=== PATIENT | female | born 1965 | race Caucasian/White ===

== ENCOUNTER 2021-07-18 14:31 | Emergency (ER) | payer OTHER ==
[~2021-07-18] VITALS: Ht 162.6 cm; Wt 111.6 kg
[2021-07-18] MEDS ORDERED: KETOROLAC TROMETHAMINE 30 MG/ML VIAL IM STA (14:44)
[2021-07-18] MEDS ORDERED: HYDROCODONE/APAP 5MG-325MG TAB PO ONE (15:30)
[2021-07-18] MEDS ORDERED: ULTRAM50 MG PO (17:28)
[2021-07-18] MEDS ORDERED: CLONIDINE HCL 0.1 MG TAB PO ONE (17:30)
[2021-07-18] MEDS ORDERED: CLONIDINE HCL 0.1 MG TAB ONE (17:30)
== END 2021-07-18 18:05 | disposition home or self-care (01) ==
LOC: ER 15:49
DX: M25.561 Pain in right knee (principal); S83.91XA Sprain of unspecified site of right knee, initial encounter; M25.461 Effusion, right knee; W18.30XA Fall on same level, unspecified, initial encounter; I10 Essential (primary) hypertension; E11.9 Type 2 diabetes mellitus without complications
CPT/HCPCS: 73562; 99283; J1885

== ENCOUNTER 2021-11-02 12:14 | Emergency (ER) | payer OTHER ==
[~2021-11-02] VITALS: Ht 162.6 cm; Wt 111.6 kg
[~2021-11-02 12:14] MED LIST: ULTRAM50 MG PO
[2021-11-02] MEDS ORDERED: HYDRALAZINE HCL 20 MG/ML VIAL IV ONE (12:22)
[2021-11-02 12:48] LABS: BASOPHILS # (AUTO) 0.1 (0.0-0.1); BASOPHILS % 0.4 % (0.0-1.0); EOSINOPHILS # (AUTO) 0.2 (0.0-0.4); EOSINOPHILS % 1.3 % (0.0-6.0); HEMATOCRIT 42.7 % (34.2-44.1); HEMOGLOBIN 13.7 g/dL (12.0-16.0); LYMPHOCYTES # (AUTO) 2.8 (1.0-3.2); LYMPHOCYTES % 22.4 % (18.0-39.1); MEAN CORPUSCULAR HEMOGLOBIN 30.5 pg (28-32); MEAN CORPUSCULAR HGB CONC 32.1 g/dL (31-35); MEAN CORPUSCULAR VOLUME 95.1 fL (81-99); MONOCYTES # (AUTO) 0.8 (0.2-0.8); MONOCYTES % 6.4 % (4.4-11.3); NEUTROPHILS # (AUTO) 8.5 (2.1-6.9); NEUTROPHILS % 68.9 % (38.7-80.0); PLATELET COUNT 379 x10e3/uL (140-360); RED BLOOD COUNT 4.49 x10e6/uL (3.6-5.1); RED CELL DISTRIBUTION WIDTH 13.2 % (11.7-14.4)
[2021-11-02 13:05] LABS: ALBUMIN 3.1 g/dL (3.5-5.0); ALBUMIN/GLOBULIN RATIO 0.7 (0.8-2.0); ANION GAP 15.3 mmol/L (8-16); CALCIUM 8.5 mg/dL (8.4-10.2); CREATININE, SERUM 1.26 mg/dL (0.57-1.11); POTASSIUM 4.3 mmol/L (3.5-5.1)
[2021-11-02] MEDS ORDERED: INSULIN REGULAR, HUMAN 100 UNIT/1 ML IV ONE (13:15)
[2021-11-02] MEDS ORDERED: SODIUM CHLORIDE 0.9% 1000ML 1,000 ML IV ONE (13:15)
[2021-11-02] MEDS ORDERED: LABETALOL HCL 5 MG/ML 20ML VIAL IV ONE (13:52)
[2021-11-02] MEDS ORDERED: LOSARTAN POTASSIUM 100 MG TAB PO ONE (14:00)
[2021-11-02] MEDS ORDERED: HYDROCHLOROTHIAZIDE 25 MG TAB PO ONE (14:00)
[2021-11-02] MEDS ORDERED: LOSARTAN POTASSIUM 25 MG TAB PO ONE (14:30)
[2021-11-02] MEDS ORDERED: LOSARTAN POTAS100 MG PO (15:07)
[2021-11-02] MEDS ORDERED: HYDROCHLOROTHIA25 MG PO (15:07)
[2021-11-02 15:17] VITALS: BP 162/99
== END 2021-11-02 15:15 | disposition home or self-care (01) ==
LOC: ER 12:17
DX: I10 Essential (primary) hypertension (principal); H11.32 Conjunctival hemorrhage, left eye; E11.65 Type 2 diabetes mellitus with hyperglycemia; I45.10 Unspecified right bundle-branch block
CPT/HCPCS: 36415; 80053; 82948; 84484; 85025; 93005; 99284; J0360; J7030

== ENCOUNTER 2024-06-18 16:01 | Inpatient (IN) | payer OTHER ==
[~2024-06-18] VITALS: Ht 162.6 cm; Wt 118.2 kg
[~2024-06-18 16:01] MED LIST changes: +HYDROCHLOROTHIA25 MG PO; +LOSARTAN POTAS100 MG PO
[2024-06-18 16:10] VITALS: RESP 18; TEMP 98.8
[2024-06-18] MEDS: LABETALOL HCL 5 MG/ML 20ML VIAL IV STA (16:55)
[2024-06-18] MEDS: FUROSEMIDE INJ 10 MG/ML 4 ML VIAL IV ONE (16:55)
[2024-06-18] MEDS: ALBUTEROL/IPRATROPIUM 3 ML NEB NEB ONE (16:56)
[2024-06-18 17:24] VITALS: PULSE 83
[2024-06-18 19:08] LABS: TROPONIN I 4.421 ng/mL (0-0.300)
[2024-06-18 19:15] VITALS: PULSE 82; RESP 18; O2SAT 98
[2024-06-18] MEDS: ASPIRIN 325 MG TAB PO ONE (19:16)
[2024-06-18] MEDS ORDERED: HEPARIN SOD/DEXTROSE 5% 25000 UNIT/250 ML BAG IV SCH ×2 (19:30→21:15)
[2024-06-18] MEDS ORDERED: DEXTROSE 50% SYRINGE 50 ML IV PRN (20:30)
[2024-06-18 20:40] VITALS: BP 191/122; PULSE 83; RESP 18; TEMP 98.8; O2SAT 97
[2024-06-18 21:08] VITALS: BP 192/122; PULSE 88; RESP 20; TEMP 98; O2SAT 99
[2024-06-18] MEDS: HEPARIN 25,000 UNIT/D5W 250ML 250 ML IV SCH (22:21)
[2024-06-18] MEDS ORDERED: JARDIANCE10 MG (22:39)
[2024-06-18] MEDS: CLONIDINE HCL 0.1 MG TAB PO PRN (22:51)
[2024-06-18] MEDS: INSULIN LISPRO 100 UNIT/1 ML 3ML VIAL SQ SCH (22:54)
[2024-06-19] VITALS (8 sets, daily range): BP systolic 107–172; BP diastolic 73–99; PULSE 74–92; RESP 16–21; TEMP 97.5–98; O2SAT 91–100
[2024-06-19] MEDS: HYDROCHLOROTHIAZIDE 25 MG TAB PO SCH (09:06)
[2024-06-19] MEDS: ASPIRIN 81 MG ENTERIC COATED PO SCH (09:06)
[2024-06-19] MEDS ORDERED: ACETAMINOPHEN 325 MG TAB PO PRN (10:15)
[2024-06-19] MEDS: LOSARTAN POTASSIUM 100 MG TAB PO SCH (11:13)
[2024-06-19] MEDS: EMPAGLIFLOZIN 10 MG TABLET PO SCH (11:13)
[2024-06-19] MEDS: Morphine 2mg Syringe 2 MG/ML SYR IV PRN (13:16)
[2024-06-19] MEDS: ONDANSETRON HCL INJ 2MG/ML 2ML 2 MG/ML VIAL IV PRN (13:16)
[2024-06-19] MEDS: CARVEDILOL 3.125 MG TAB PO SCH (13:17)
[2024-06-19] MEDS: FUROSEMIDE INJ 10 MG/ML 2 ML VIAL IV SCH (13:17)
[2024-06-19 13:24] LABS: BASOPHILS % 0.2 % (0.0-1.0); EOSINOPHILS # (AUTO) 0.2 (0.0-0.4); EOSINOPHILS % 1.6 % (0.0-6.0); HEMATOCRIT 34.4 % (34.2-44.1); HEMOGLOBIN 10.3 g/dL (12.0-16.0); LYMPHOCYTES % 9.2 % (18.0-39.1); MEAN CORPUSCULAR HEMOGLOBIN 28.6 pg (28-32); MEAN CORPUSCULAR HGB CONC 29.9 g/dL (31-35); MEAN CORPUSCULAR VOLUME 95.6 fL (81-99); MONOCYTES # (AUTO) 0.8 (0.2-0.8); NEUTROPHILS % 81.5 % (38.7-80.0); PLATELET COUNT 272 x10e3/uL (140-360); RED CELL DISTRIBUTION WIDTH 17.3 % (11.7-14.4)
[2024-06-19 13:46] LABS: ALBUMIN/GLOBULIN RATIO 0.6 (0.8-2.0); ANION GAP 13.3 mmol/L (8-16); BILIRUBIN,TOTAL 0.5 mg/dL (0.2-1.2); CALCIUM 8.5 mg/dL (8.4-10.2); CREATININE, SERUM 2.11 mg/dL (0.57-1.11); POTASSIUM 4.3 mmol/L (3.5-5.1); TOTAL PROTEIN 5.6 g/dL (6.5-8.1)
[2024-06-19] MEDS ORDERED: FUROSEMIDE INJ 10 MG/ML 2 ML VIAL IV SCH (17:00)
[2024-06-19] MEDS: FUROSEMIDE INJ 10 MG/ML 4 ML VIAL IV SCH (17:22)
[2024-06-19] MEDS: SACUBITRIL/VALSARTAN 24MG/26MG 1 EA TAB PO SCH (17:22)
[2024-06-19] MEDS: METOLAZONE 5 MG TAB PO SCH (17:23)
[2024-06-19 18:42] LABS: BILIRUBIN,URINE NEGATIVE (NEGATIVE); CLARITY,URINE CLOUDY (CLEAR); COLOR,URINE YELLOW (YELLOW); GLUCOSE, URINE 500 (NEGATIVE); KETONES,URINE NEGATIVE (NEGATIVE); LEUKOCYTE ESTERASE ,URINE TRACE (NEGATIVE); NITRITE,URINE NEGATIVE (NEGATIVE); PH,URINE 5.5 (5 - 7); PROTEIN,URINE DIPSTICK >=300 (NEGATIVE); URINE UROBILINOGEN 0.2 mg/dL (0.2 - 1)
[2024-06-19 18:56] LABS: BACTERIA,URINE MANY /HPF; EPITHELIAL CELLS,URINE FEW /LPF; RBC,URINE 0-5 /HPF (0-5); WBC,URINE (MAN) 21-50 /HPF (0-5)
[2024-06-19 19:05] LABS: CREATININE,URINE RANDOM 53.92 mg/dL (47-110)
[2024-06-19 19:33] LABS: TOTAL PROTEIN, URINE 450.1 mg/dL (1-14)
[2024-06-20] VITALS (8 sets, daily range): BP systolic 119–147; BP diastolic 78–97; PULSE 63–79; RESP 18–21; TEMP 97.3–98.2; O2SAT 92–96
[2024-06-20] MEDS ORDERED: LOSARTAN POTASSIUM 100 MG TAB PO SCH (09:00)
[2024-06-20 09:09] LABS: ANION GAP 18.5 mmol/L (8-16); CALCIUM 9.2 mg/dL (8.4-10.2); CREATININE, SERUM 2.48 mg/dL (0.57-1.11); POTASSIUM 4.5 mmol/L (3.5-5.1)
[2024-06-20 09:37] LABS: BASOPHILS # (AUTO) 0.1 (0.0-0.1); BASOPHILS % 0.4 % (0.0-1.0); EOSINOPHILS # (AUTO) 0.1 (0.0-0.4); EOSINOPHILS % 0.9 % (0.0-6.0); HEMATOCRIT 38.3 % (34.2-44.1); HEMOGLOBIN 11.7 g/dL (12.0-16.0); LYMPHOCYTES # (AUTO) 0.9 (1.0-3.2); LYMPHOCYTES % 8.2 % (18.0-39.1); MEAN CORPUSCULAR HEMOGLOBIN 28.5 pg (28-32); MEAN CORPUSCULAR HGB CONC 30.5 g/dL (31-35); MEAN CORPUSCULAR VOLUME 93.2 fL (81-99); MONOCYTES # (AUTO) 0.9 (0.2-0.8); MONOCYTES % 7.9 % (4.4-11.3); NEUTROPHILS # (AUTO) 9.4 (2.1-6.9); PLATELET COUNT 247 x10e3/uL (140-360); RED BLOOD COUNT 4.11 x10e6/uL (3.6-5.1); RED CELL DISTRIBUTION WIDTH 17.8 % (11.7-14.4)
[2024-06-20 14:18] LABS: BASOPHILS % 0.2 % (0.0-1.0); EOSINOPHILS # (AUTO) 0.2 (0.0-0.4); EOSINOPHILS % 1.4 % (0.0-6.0); HEMATOCRIT 35.3 % (34.2-44.1); HEMOGLOBIN 10.4 g/dL (12.0-16.0); LYMPHOCYTES # (AUTO) 1.2 (1.0-3.2); LYMPHOCYTES % 10.6 % (18.0-39.1); MEAN CORPUSCULAR HEMOGLOBIN 28.2 pg (28-32); MEAN CORPUSCULAR HGB CONC 29.5 g/dL (31-35); MEAN CORPUSCULAR VOLUME 95.7 fL (81-99); MONOCYTES # (AUTO) 0.8 (0.2-0.8); MONOCYTES % 7.3 % (4.4-11.3); NEUTROPHILS % 79.9 % (38.7-80.0); PLATELET COUNT 251 x10e3/uL (140-360); RED BLOOD COUNT 3.69 x10e6/uL (3.6-5.1); RED CELL DISTRIBUTION WIDTH 17.4 % (11.7-14.4); WHITE BLOOD COUNT 11.25 x10e3/uL (4.8-10.8)
[2024-06-20] MEDS: FAMOTIDINE 20 MG TAB PO SCH (17:09)
[2024-06-20] MEDS: INSULIN GLARGINE 100 UNITS/ML VIAL SQ SCH (21:56)
[2024-06-21] VITALS (7 sets, daily range): BP systolic 113–138; BP diastolic 71–89; PULSE 65–72; RESP 18–21; TEMP 97.5–98.1; O2SAT 93–97
[2024-06-21] MEDS: ACETAMINOPHEN 325 MG TAB PO PRN (02:33)
[2024-06-21 06:02] LABS: BASOPHILS % 0.3 % (0.0-1.0); EOSINOPHILS # (AUTO) 0.1 (0.0-0.4); EOSINOPHILS % 1.1 % (0.0-6.0); HEMATOCRIT 36.6 % (34.2-44.1); HEMOGLOBIN 10.8 g/dL (12.0-16.0); LYMPHOCYTES # (AUTO) 1.5 (1.0-3.2); LYMPHOCYTES % 13.4 % (18.0-39.1); MEAN CORPUSCULAR HEMOGLOBIN 28.6 pg (28-32); MEAN CORPUSCULAR HGB CONC 29.5 g/dL (31-35); MEAN CORPUSCULAR VOLUME 96.8 fL (81-99); MONOCYTES # (AUTO) 0.9 (0.2-0.8); MONOCYTES % 8.3 % (4.4-11.3); NEUTROPHILS # (AUTO) 8.5 (2.1-6.9); NEUTROPHILS % 76.4 % (38.7-80.0); PLATELET COUNT 254 x10e3/uL (140-360); RED BLOOD COUNT 3.78 x10e6/uL (3.6-5.1); RED CELL DISTRIBUTION WIDTH 17.4 % (11.7-14.4); WHITE BLOOD COUNT 11.05 x10e3/uL (4.8-10.8)
[2024-06-21 06:42] LABS: ALBUMIN 1.8 g/dL (3.5-5.0); ALBUMIN/GLOBULIN RATIO 0.5 (0.8-2.0); ANION GAP 16.5 mmol/L (8-16); BILIRUBIN,TOTAL 0.4 mg/dL (0.2-1.2); CALCIUM 8.5 mg/dL (8.4-10.2); CREATININE, SERUM 2.89 mg/dL (0.57-1.11); POTASSIUM 4.5 mmol/L (3.5-5.1); TOTAL PROTEIN 5.4 g/dL (6.5-8.1)
[2024-06-21] MEDS ORDERED: ENOXAPARIN SOD INJ 40 MG/0.4 ML SYR SC SCH (17:00)
[2024-06-21] MEDS: HEPARIN SOD (PORCINE) 5,000 UNIT/ML VIAL SC SCH (21:43)
[2024-06-21] MEDS: HYDROCODONE/APAP 5MG-325MG TAB PO PRN (23:47)
[2024-06-22] VITALS (8 sets, daily range): BP systolic 116–164; BP diastolic 66–80; PULSE 61–69; RESP 18–20; TEMP 97.6–98.1; O2SAT 94–98
[2024-06-22 05:55] LABS: BASOPHILS % 0.4 % (0.0-1.0); EOSINOPHILS # (AUTO) 0.2 (0.0-0.4); EOSINOPHILS % 1.8 % (0.0-6.0); HEMATOCRIT 36.5 % (34.2-44.1); HEMOGLOBIN 11.2 g/dL (12.0-16.0); LYMPHOCYTES # (AUTO) 1.3 (1.0-3.2); LYMPHOCYTES % 12.1 % (18.0-39.1); MEAN CORPUSCULAR HEMOGLOBIN 28.1 pg (28-32); MEAN CORPUSCULAR HGB CONC 30.7 g/dL (31-35); MEAN CORPUSCULAR VOLUME 91.5 fL (81-99); MONOCYTES # (AUTO) 1.1 (0.2-0.8); MONOCYTES % 10.1 % (4.4-11.3); NEUTROPHILS # (AUTO) 7.8 (2.1-6.9); NEUTROPHILS % 74.9 % (38.7-80.0); PLATELET COUNT 285 x10e3/uL (140-360); RED BLOOD COUNT 3.99 x10e6/uL (3.6-5.1); RED CELL DISTRIBUTION WIDTH 17.2 % (11.7-14.4); WHITE BLOOD COUNT 10.43 x10e3/uL (4.8-10.8)
[2024-06-22 06:17] LABS: ALBUMIN 1.8 g/dL (3.5-5.0); ALBUMIN/GLOBULIN RATIO 0.5 (0.8-2.0); ANION GAP 15.5 mmol/L (8-16); BILIRUBIN,TOTAL 0.4 mg/dL (0.2-1.2); CALCIUM 8.3 mg/dL (8.4-10.2); CREATININE, SERUM 3.03 mg/dL (0.57-1.11); POTASSIUM 4.5 mmol/L (3.5-5.1); TOTAL PROTEIN 5.2 g/dL (6.5-8.1)
[2024-06-22] MEDS ORDERED: ALBUMIN 5% 0.05 GM/ML BTL IV ONE (14:15)
[2024-06-22] MEDS: ALBUMIN 5% 250ML 250 ML IV ONE (15:25)
[2024-06-23 00:35] VITALS: BP 120/62; PULSE 71; RESP 20; TEMP 97.4; O2SAT 95
[2024-06-23 08:18] VITALS: BP 120/62; PULSE 71; RESP 20; TEMP 97.4; O2SAT 95
[2024-06-23 08:33] LABS: BASOPHILS % 0.4 % (0.0-1.0); EOSINOPHILS # (AUTO) 0.2 (0.0-0.4); EOSINOPHILS % 2.5 % (0.0-6.0); HEMATOCRIT 37.9 % (34.2-44.1); HEMOGLOBIN 11.7 g/dL (12.0-16.0); LYMPHOCYTES # (AUTO) 0.8 (1.0-3.2); LYMPHOCYTES % 10.6 % (18.0-39.1); MEAN CORPUSCULAR HEMOGLOBIN 28.3 pg (28-32); MEAN CORPUSCULAR HGB CONC 30.9 g/dL (31-35); MEAN CORPUSCULAR VOLUME 91.5 fL (81-99); MONOCYTES # (AUTO) 0.7 (0.2-0.8); MONOCYTES % 9.9 % (4.4-11.3); NEUTROPHILS # (AUTO) 5.4 (2.1-6.9); NEUTROPHILS % 75.9 % (38.7-80.0); PLATELET COUNT 159 x10e3/uL (140-360); RED BLOOD COUNT 4.14 x10e6/uL (3.6-5.1); RED CELL DISTRIBUTION WIDTH 17.3 % (11.7-14.4); WHITE BLOOD COUNT 7.16 x10e3/uL (4.8-10.8)
[2024-06-23 08:37] VITALS: BP 149/99; PULSE 74; RESP 20; TEMP 97.4; O2SAT 96
[2024-06-23 09:01] LABS: ANION GAP 18.9 mmol/L (8-16); CALCIUM 8.7 mg/dL (8.4-10.2); CREATININE, SERUM 3.07 mg/dL (0.57-1.11); POTASSIUM 4.9 mmol/L (3.5-5.1)
[2024-06-23 12:29] VITALS: BP 117/98; PULSE 73; RESP 20; TEMP 98.1; O2SAT 96
[2024-06-23 17:44] VITALS: BP 139/65; PULSE 70; RESP 20; TEMP 98.1; O2SAT 98
[2024-06-23 20:00] VITALS: BP 139/90; PULSE 72; RESP 18; TEMP 97.7; O2SAT 94
[2024-06-24] VITALS (7 sets, daily range): BP systolic 131–194; BP diastolic 75–97; PULSE 69–78; RESP 16–20; TEMP 97.3–98.6; O2SAT 92–98
[2024-06-24 07:00] LABS: BASOPHILS % 0.4 % (0.0-1.0); EOSINOPHILS # (AUTO) 0.3 (0.0-0.4); EOSINOPHILS % 3.5 % (0.0-6.0); HEMATOCRIT 37.9 % (34.2-44.1); HEMOGLOBIN 11.1 g/dL (12.0-16.0); LYMPHOCYTES # (AUTO) 1.2 (1.0-3.2); LYMPHOCYTES % 12.6 % (18.0-39.1); MEAN CORPUSCULAR HEMOGLOBIN 27.9 pg (28-32); MEAN CORPUSCULAR HGB CONC 29.3 g/dL (31-35); MEAN CORPUSCULAR VOLUME 95.2 fL (81-99); MONOCYTES # (AUTO) 1.1 (0.2-0.8); MONOCYTES % 11.3 % (4.4-11.3); NEUTROPHILS # (AUTO) 6.8 (2.1-6.9); NEUTROPHILS % 71.9 % (38.7-80.0); PLATELET COUNT 278 x10e3/uL (140-360); RED BLOOD COUNT 3.98 x10e6/uL (3.6-5.1); RED CELL DISTRIBUTION WIDTH 17.2 % (11.7-14.4); WHITE BLOOD COUNT 9.43 x10e3/uL (4.8-10.8)
[2024-06-24 07:26] LABS: ANION GAP 16.4 mmol/L (8-16); CALCIUM 8.6 mg/dL (8.4-10.2); CREATININE, SERUM 2.7 mg/dL (0.57-1.11); POTASSIUM 4.4 mmol/L (3.5-5.1)
[2024-06-25] VITALS: BP 128/82; PULSE 68; RESP 18; TEMP 98; O2SAT 93
[2024-06-25 04:00] VITALS: BP 156/83; PULSE 72; RESP 18; TEMP 97.9; O2SAT 93
[2024-06-25 08:35] VITALS: BP 144/96; PULSE 69; RESP 18; TEMP 97.5; O2SAT 98
[2024-06-25 09:00] VITALS: BP 144/96; PULSE 69; RESP 18; TEMP 97.5; O2SAT 98
[2024-06-25 11:17] VITALS: BP 153/90; PULSE 66; RESP 18; TEMP 97.9; O2SAT 98
[2024-06-25 20:00] VITALS: BP 126/63; PULSE 70; RESP 18; TEMP 98.1; O2SAT 98
[2024-06-26] VITALS (7 sets, daily range): BP systolic 126–186; BP diastolic 71–90; PULSE 65–81; RESP 16–20; TEMP 97.7–98.2; O2SAT 95–98
[2024-06-26] MEDS: ENALAPRIL MALEATE 10 MG TAB PO SCH (08:57)
[2024-06-27] VITALS (7 sets, daily range): BP systolic 147–175; BP diastolic 76–97; PULSE 66–74; RESP 16–20; TEMP 97.8–98.2; O2SAT 93–96
[2024-06-27 06:16] LABS: BASOPHILS % 0.4 % (0.0-1.0); EOSINOPHILS # (AUTO) 0.4 (0.0-0.4); EOSINOPHILS % 4.7 % (0.0-6.0); HEMATOCRIT 37.4 % (34.2-44.1); HEMOGLOBIN 11.6 g/dL (12.0-16.0); LYMPHOCYTES % 11.5 % (18.0-39.1); MEAN CORPUSCULAR HEMOGLOBIN 27.9 pg (28-32); MEAN CORPUSCULAR VOLUME 89.9 fL (81-99); MONOCYTES # (AUTO) 0.9 (0.2-0.8); MONOCYTES % 9.5 % (4.4-11.3); NEUTROPHILS # (AUTO) 6.6 (2.1-6.9); NEUTROPHILS % 73.5 % (38.7-80.0); PLATELET COUNT 338 x10e3/uL (140-360); RED BLOOD COUNT 4.16 x10e6/uL (3.6-5.1); WHITE BLOOD COUNT 9.03 x10e3/uL (4.8-10.8)
[2024-06-27 06:40] LABS: ANION GAP 15.6 mmol/L (8-16); CALCIUM 8.8 mg/dL (8.4-10.2); CREATININE, SERUM 2.26 mg/dL (0.57-1.11); POTASSIUM 4.6 mmol/L (3.5-5.1)
[2024-06-27] MEDS: FUROSEMIDE 40 MG TAB PO SCH (12:27)
[2024-06-28] VITALS (7 sets, daily range): BP systolic 146–192; BP diastolic 78–89; PULSE 68–78; RESP 20; TEMP 97.2–98.6; O2SAT 94–99
[2024-06-28 05:41] LABS: BASOPHILS % 0.3 % (0.0-1.0); EOSINOPHILS # (AUTO) 0.5 (0.0-0.4); EOSINOPHILS % 6.5 % (0.0-6.0); HEMATOCRIT 34.2 % (34.2-44.1); HEMOGLOBIN 10.6 g/dL (12.0-16.0); LYMPHOCYTES # (AUTO) 1.1 (1.0-3.2); LYMPHOCYTES % 14.6 % (18.0-39.1); MEAN CORPUSCULAR HEMOGLOBIN 27.7 pg (28-32); MEAN CORPUSCULAR VOLUME 89.3 fL (81-99); MONOCYTES # (AUTO) 0.8 (0.2-0.8); MONOCYTES % 10.6 % (4.4-11.3); NEUTROPHILS % 67.7 % (38.7-80.0); PLATELET COUNT 332 x10e3/uL (140-360); RED BLOOD COUNT 3.83 x10e6/uL (3.6-5.1); WHITE BLOOD COUNT 7.34 x10e3/uL (4.8-10.8)
[2024-06-28 06:02] LABS: ANION GAP 15.5 mmol/L (8-16); CALCIUM 8.7 mg/dL (8.4-10.2); CREATININE, SERUM 2.09 mg/dL (0.57-1.11); POTASSIUM 4.5 mmol/L (3.5-5.1)
[2024-06-28] MEDS ORDERED: ENALAPRIL MALEATE 10 MG TAB PO SCH (10:45)
[2024-06-28] MEDS ORDERED: Insulin Glargine SQ (14:21)
[2024-06-28] MEDS ORDERED: FAMOTIDINE20 MG PO (14:21)
[2024-06-28] MEDS ORDERED: ACETAMINOPHEN325 M1 PO (14:21)
[2024-06-28] MEDS ORDERED: ENTRESTO 49 MG1 EACH PO (14:21)
[2024-06-28] MEDS ORDERED: ASPIRIN EC81 MG PO (14:21)
[2024-06-28] MEDS ORDERED: FUROSEMIDE40 MG PO (14:21)
[2024-06-28] MEDS ORDERED: Insulin Lispro SQ (14:21)
[2024-06-28] MEDS ORDERED: COREG3.125 MG PO (14:21)
[2024-06-28] MEDS: ENALAPRIL MALEATE 10 MG TAB PO SCH (16:36)
== END 2024-06-28 16:50 | DRG 280 ==
LOC: FSED 16:15 → ERHOLD 18:07 → OBSVTOIN 19:18 → MED/SURG2 20:11
PROVIDERS: ADMIT Internal Medicine; ATTEND Internal Medicine
DX: I13.0 Hypertensive heart and chronic kidney disease with heart failure and stage 1 through stage 4 chronic kidney disease, or unspecified chronic kidney disease (principal); I50.43 Acute on chronic combined systolic (congestive) and diastolic (congestive) heart failure; I21.A1 Myocardial infarction type 2; N17.9 Acute kidney failure, unspecified; E11.22 Type 2 diabetes mellitus with diabetic chronic kidney disease; N18.4 Chronic kidney disease, stage 4 (severe); N39.0 Urinary tract infection, site not specified; Z68.41 Body mass index [BMI] 40.0-44.9, adult; E66.01 Morbid (severe) obesity due to excess calories; B96.20 Unspecified Escherichia coli [E. coli] as the cause of diseases classified elsewhere; E11.65 Type 2 diabetes mellitus with hyperglycemia; E78.00 Pure hypercholesterolemia, unspecified; E11.21 Type 2 diabetes mellitus with diabetic nephropathy; R26.2 Difficulty in walking, not elsewhere classified; Z11.52 Encounter for screening for COVID-19; T38.3X6A Underdosing of insulin and oral hypoglycemic [antidiabetic] drugs, initial encounter; Z91.128 Patient's intentional underdosing of medication regimen for other reason; Z79.84 Long term (current) use of oral hypoglycemic drugs; Z90.49 Acquired absence of other specified parts of digestive tract; Z88.0 Allergy status to penicillin; Z88.5 Allergy status to narcotic agent; Z82.49 Family history of ischemic heart disease and other diseases of the circulatory system; Z83.3 Family history of diabetes mellitus
CPT/HCPCS: 0223U; 36415; 71045; 76770; 80048; 80053; 81001; 82550; 82570; 82948; 83036; 83880; 84156; 84443; 84484; 85025; 85730; 87086; 87186; 87400; 93005; 93306; 94799; 96361; 96366; 96372; 99252; 99284; J0696; J1644; J1940; J2270; J2405

== ENCOUNTER 2024-08-07 13:00 | Emergency (ER) | payer OTHER ==
[~2024-08-07] VITALS: Ht 162.6 cm; Wt 117.9 kg
[~2024-08-07 13:00] MED LIST changes: +ACETAMINOPHEN325 M1 PO; +ASPIRIN EC81 MG PO; +COREG3.125 MG PO; +ENTRESTO 49 MG1 EACH PO; +FAMOTIDINE20 MG PO; +FUROSEMIDE40 MG PO; +Insulin Glargine SQ; +Insulin Lispro SQ; +JARDIANCE10 MG
[2024-08-07 13:07] VITALS: TEMP 98.1
[2024-08-07 14:17] LABS: BASOPHILS % 0.4 % (0.0-1.0); EOSINOPHILS # (AUTO) 0.3 (0.0-0.4); EOSINOPHILS % 2.8 % (0.0-6.0); HEMATOCRIT 42.9 % (34.2-44.1); HEMOGLOBIN 13.6 g/dL (12.0-16.0); LYMPHOCYTES # (AUTO) 1.7 (1.0-3.2); LYMPHOCYTES % 16.7 % (18.0-39.1); MEAN CORPUSCULAR HEMOGLOBIN 28.2 pg (28-32); MEAN CORPUSCULAR HGB CONC 31.7 g/dL (31-35); MEAN CORPUSCULAR VOLUME 88.8 fL (81-99); MONOCYTES # (AUTO) 0.7 (0.2-0.8); MONOCYTES % 6.6 % (4.4-11.3); NEUTROPHILS # (AUTO) 7.4 (2.1-6.9); NEUTROPHILS % 73.1 % (38.7-80.0); PLATELET COUNT 443 x10e3/uL (140-360); RED BLOOD COUNT 4.83 x10e6/uL (3.6-5.1); RED CELL DISTRIBUTION WIDTH 18.2 % (11.7-14.4); WHITE BLOOD COUNT 10.09 x10e3/uL (4.8-10.8)
[2024-08-07 14:24] VITALS: PULSE 91
[2024-08-07] MEDS: LABETALOL HCL 5 MG/ML 20ML VIAL IV STA (14:24)
[2024-08-07] MEDS: FUROSEMIDE INJ 10 MG/ML 4 ML VIAL IV ONE (14:26)
[2024-08-07 14:27] VITALS: BP 212/116
[2024-08-07] MEDS: HYDRALAZINE HCL 20 MG/ML VIAL IV STA (14:27)
[2024-08-07 14:55] VITALS: PULSE 71; RESP 16; O2SAT 99
[2024-08-07 16:16] LABS: ALBUMIN/GLOBULIN RATIO 0.7 (0.8-2.0); ANION GAP 17.4 mmol/L (8-16); BILIRUBIN,TOTAL 0.5 mg/dL (0.2-1.2); CALCIUM 10.2 mg/dL (8.4-10.2); CREATININE, SERUM 2.47 mg/dL (0.57-1.11); POTASSIUM 4.4 mmol/L (3.5-5.1); TOTAL PROTEIN 7.4 g/dL (6.5-8.1)
[2024-08-07 16:22] LABS: TROPONIN I 0.082 ng/mL (0-0.300)
== END 2024-08-07 18:24 | disposition home or self-care (01) ==
LOC: ER 14:08
DX: R53.1 Weakness (principal); I10 Essential (primary) hypertension; R26.2 Difficulty in walking, not elsewhere classified; E11.65 Type 2 diabetes mellitus with hyperglycemia; N28.9 Disorder of kidney and ureter, unspecified; I50.9 Heart failure, unspecified; R94.31 Abnormal electrocardiogram [ECG] [EKG]; I25.2 Old myocardial infarction
CPT/HCPCS: 36415; 71045; 80053; 83880; 84484; 85025; 93005; 99284; J0360; J1940; J3490